=== PATIENT | male | born 1955 | race American Indian/Alaskan Native ===

== ENCOUNTER 2018-10-21 02:08 | Emergency (ER) | payer OTHER ==
[2018-10-21 02:13] VITALS: BP 120/72
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
--- NOTE | 2018-10-21 06:15 | Cat Scan Report ---
CT head/brain wo con INDICATION / CLINICAL INFORMATION: fall. TECHNIQUE: Axial CT imaging of the brain was obtained without IV contrast. Coronal and sagittal reformatted imag ing obtained and reviewed. All CT scans at this location are performed using CT dose reduction for AL SG by means of automated exposure control. COMPARISON: None available. FINDINGS: No intracranial hemorrhage, mass, or midline shift is identified. No extra-axial fluid collection or suggestion of acute territorial infarct. Ventricular system and basilar cisterns are unremarkable. Mi ld cerebral and cerebellar atrophy is noted. Visualized paranasal sinuses demonstrate some moderate mucosal thickening throughout the posterior et hmoid air cells bilaterally. No calvarial fracture noted. IMPRESSION: 1. No acute intracranial abnormality. 2. Bilateral ethmoid air cell mucosal thickening. Signer Name: Cony Martinez MD Signed: 10/21/2018 5:11 AM Workstation Name: [id number]
--- NOTE | 2018-10-21 06:21 | Cat Scan Report ---
CT cervical spine wo con INDICATION / CLINICAL INFORMATION: fall. TECHNIQUE: Axial CT imaging of the cervical spine was obtained without IV contrast. Coronal and sagittal reforma tted imaging obtained and reviewed. All CT scans at this location are performed using CT dose reducti on for ALARA by means of automated exposure control. COMPARISON: None available. FINDINGS: No evidence for cervical spine fracture or traumatic subluxation. Alignment is normal. Mild degenerat blair disc disease is noted at C4-5-C6. Mild central disc bulge at C5-C6 without effacement of the spin al cord. Paravertebral soft tissues are unremarkable. Visualized lung apices are unremarkable.. IMPRESSION: 1. No evidence for cervical spine fracture or traumatic subluxation. 2. Mild degenerative disc disease at C5-C6. Mild central disc bulge, C5-C6. Signer Name: Cony Martinez MD Signed: 10/21/2018 5:17 AM Workstation Name: [id number]
== END 2018-10-21 07:18 | disposition left against medical advice (07) ==
LOC: ED 02:08
DX: S00.03XA Contusion of scalp, initial encounter (principal); G44.319 Acute post-traumatic headache, not intractable; M54.2 Cervicalgia; W01.198A Fall on same level from slipping, tripping and stumbling with subsequent striking against other object, initial encounter; Y93.89 Activity, other specified; Y92.89 Other specified places as the place of occurrence of the external cause; Y99.8 Other external cause status
CPT/HCPCS: 70450; 72125; 99282